=== PATIENT | male | born 1975 | race Caucasian/White ===

== ENCOUNTER → 2024-02-02 | Outpatient (CLI) | payer BC ==
--- NOTE | 2024-02-02 20:04 | US ---
EXAMINATION TYPE: US gallbladder DATE OF EXAM: 02/02/2024 COMPARISON: NONE CLINICAL INDICATION: Male, 48 years old with history of R10.13 EPIGASTRIC PAIN; Heart burn x few rupert hs; Hx HTN; Patient denies any other signs or symptoms at this time TECHNIQUE: Multiple sonographic images of the right upper quadrant are obtained. FINDINGS: EXAM MEASUREMENTS: Liver Length: 17.0 cm Gallbladder Wall: 0.2 cm CBD: 0.5 cm Right Kidney: 12.1 x 6.6 x 5.5 cm SEW OUT OPERATOR NOTES: Pancreas: Hyperechoic Liver: Increased attenuation ; shadowing area superior medial right lobe Gallbladder: wnl Evidence for sonographic Gomes's sign: No CBD: wnl Right Kidney: wnl IMPRESSION: 1. No evidence for acute process 2. Hepatic steatosis with focal fatty sparing next the gallbladder fossa. 3. Shadowing area in the medial right hepatic lobe noted by siding installer. Finding could represent peter iccation. There is concern for lesion consider CT or MRI liver mass protocol.
== END | disposition home or self-care (01) ==
LOC: RADUSWWP 06:53
PROVIDERS: ATTEND Internal Medicine
DX: K76.0 Fatty (change of) liver, not elsewhere classified (principal); I10 Essential (primary) hypertension
CPT/HCPCS: 76705

== ENCOUNTER → 2024-02-02 | Outpatient (CLI) | payer BC ==
--- NOTE | 2024-02-03 11:16 | CA ---
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 LV Systolic Volume MOD 4C 68.7 cm??? LV Ejection Fraction MOD 4C 52.3 % LV Cardiac Index MOD 4C 2243.6 cm???/min???m??? LV Diastolic Length 4C 8.9 cm LV Systolic Length 4C 7.4 cm LV Diastolic Volume MOD 2C 121.9 cm??? LV Systolic Volume MOD 2C 52.3 cm??? LV Ejection Fraction MOD 2C 57.1 % LV Cardiac Index MOD 2C 2071.7 cm???/min???m??? LV Diastolic Length 2C 8.6 cm LV Systolic Length 2C 7.2 cm LA Volume 66.2 cm??? 18 - 58 / 22 - 52 cm??? LA Volume Index 24.6 cm???/m??? 16 - 28 cm???/m??? M-MODE Aortic Root Diameter MM 3.7 cm AV Cusp Separation MM 2.7 cm DOPPLER AV Peak Velocity 140.5 cm/s AV Peak Gradient 7.9 mmHg MV Area PHT 4.1 cm??? Mitral E Point Velocity 84.9 cm/s Mitral A Point Velocity 66.1 cm/s Mitral E to A Ratio 1.3 MV Deceleration Time 185.8 ms FINDINGS Left Ventricle Left ventricular ejection fraction is estimated at 55-60 %. Left ventricular cavity size normal. Moderate concentric left ventricular hypertrophy. No obvious regional wall motion abnormalities. Right Ventricle Mild right ventricular dilatation. Unable to estimate the right ventricular systolic pressure. Right Atrium Normal right atrial size. Left Atrium Mildly increased left atrial diameter. Mildly increased left atrial volume. Mitral Valve Structurally normal mitral valve. No mitral stenosis, regurgitation or prolapse. Aortic Valve Trileaflet aortic valve. No aortic valve stenosis or regurgitation. Tricuspid Valve Structurally normal tricuspid valve. No tricuspid stenosis, regurgitation or prolapse. Pulmonic Valve Structurally normal pulmonic valve. No pulmonic regurgitation. Pericardium No pericardial effusion. Aorta Normal size aortic root and proximal ascending aorta. CONCLUSIONS Normal LV size and systolic function with mild/moderate concentric LVH. Mild enlargement of atria are noted. No significant abnormality on the Doppler exam. No pericardial effusion Previewed by: Dr. Michi Harris MD (Electronically Signed) Final Date: 03 February 2024 11:15
== END | disposition home or self-care (01) ==
LOC: RADECHMAIN 17:58
PROVIDERS: ATTEND Internal Medicine
DX: I07.1 Rheumatic tricuspid insufficiency (principal); I11.9 Hypertensive heart disease without heart failure
CPT/HCPCS: 93306

== ENCOUNTER → 2024-03-15 | Outpatient (CLI) | payer BC ==
--- NOTE | 2024-03-16 00:54 | MR ---
EXAMINATION TYPE: MR liver wo/w con DATE OF EXAM: 03/15/2024 COMPARISON: Ultrasound gallbladder February 02, 2024 HISTORY: Abnormal US, fatty liver. CONTRAST: Standard multiplanar, multisequence MRI departmental protocol images were obtained without contrast a nd with 13.5 mL intravenous Gadavist gadolinium contrast. Imaging of the abdomen focusing on the carlos er. FINDINGS: Liver: Liver is normal in size. There is diffuse signal dropout on in and out of phase imaging consis tent with diffuse fatty infiltration. No concerning solid or cystic intrahepatic mass is identified. Contracted gallbladder on current study. No abnormal biliary dilatation. No adjacent ascites. Patent normal size main portal vein. Patent hepatic veins draining into IVC. Other: Lung bases are grossly clear. The spleen and pancreas appear within normal limits. Unremarkabl e adrenal glands. Unremarkable kidneys. No AAA. No suspicious bowel dilatation. Osseous structures ar e intact. IMPRESSION: Diffuse fatty infiltration of liver is confirmed. No worrisome solid or cystic intrahepat ic mass noted.
== END | disposition home or self-care (01) ==
LOC: RADMRIMAIN 15:00
PROVIDERS: ATTEND Internal Medicine
DX: K76.0 Fatty (change of) liver, not elsewhere classified (principal); R93.89 Abnormal findings on diagnostic imaging of other specified body structures
CPT/HCPCS: 74183; A9585